=== PATIENT | female | born 1995 | race Caucasian/White ===

== ENCOUNTER 2019-02-25 20:46 | Emergency (ER) | payer BC, OTHER ==
[2019-02-25 21:37] VITALS: BP 140/69
--- NOTE | 2019-02-25 21:49 | UC ---
Skin Complaint HPI - HPI Summary HPI Summary: 23 yo female come to clinic with a c/o laceration to the left thumb which happened jpta. Pt accidentally cut herself with a razor blade. Bleeding stopped with direct pressure. No numbness/weakness. No other injury. Reports she is UTD with Td. - History of Current Complaint Chief Complaint: UCLaceration Time Seen by Provider: 02/25/19 21:39 Stated Complaint: LEFT THUMB LAC Hx Last Menstrual Period: 02/11/19 Pain Intensity: 0 - Allergy/Home Medications Allergies/Adverse Reactions: Allergies Allergy/AdvReac Type Severity Reaction Status Date / Time No Known Allergies Allergy Verified 02/25/19 21:32 Home Medications: Home Medications NK [No Home Medications Reported] 02/25/19 [History Confirmed 02/25/19] PMH/Surg Hx/FS Hx/Imm Hx Previously Healthy: Yes - Surgical History Surgical History: Yes Surgery Procedure, Year, and Place: back sx-2014. right foot-2016. left wrist- 2016,2018 - Family History Known Family History: Positive: Non-Contributory - Social History Alcohol Use: Occasionally Substance Use Type: None Smoking Status (MU): Never Smoked Tobacco Review of Systems All Other Systems Reviewed And Are Negative: Yes Constitutional: Positive: Negative Skin: Positive: Other - see hpi Eyes: Positive: Negative ENT: Positive: Negative Respiratory: Positive: Negative Cardiovascular: Positive: Negative Gastrointestinal: Positive: Negative Motor: Positive: Negative Neurovascular: Positive: Negative Musculoskeletal: Positive: Negative Neurological: Positive: Negative Psychological: Positive: Negative Is Patient Immunocompromised?: No Physical Exam Triage Information Reviewed: Yes Appearance: Well-Appearing, No Pain Distress, Well-Nourished Vital Signs: Initial Vital Signs Temp 98.3 F 02/25/19 21:32 Pulse 87 02/25/19 21:32 Resp 20 02/25/19 21:32 BP 140/69 02/25/19 21:32 Pulse Ox 99 02/25/19 21:32 Vital Signs Reviewed: Yes Eye Exam: Normal Eyes: Positive: Conjunctiva Clear Neck: Positive: Supple Respiratory: Positive: No respiratory distress Musculoskeletal: Positive: Strength Intact, ROM Intact Neurological: Positive: Alert, Muscle Tone Normal Psychological: Positive: Age Appropriate Behavior Skin: Positive: Other - 1cm diameter avulsion laceration on the dorsum of the DIP left thumb. No active bleeding. Thumb FROM with full strength. No sensation deficit. NL cap refill. Course/Dx - Course Course Of Treatment: Laceration cleaned, gel foam and dressing applied by nursing. - Diagnoses Provider Diagnosis: Laceration of left thumb Discharge - Sign-Out/Discharge Documenting (check all that apply): Patient Departure All imaging exams completed and their final reports reviewed: No Studies - Discharge Plan Condition: Stable Disposition: HOME Patient Education Materials: Laceration Without Closure (ED) Referrals: [facility] [Outside] Additional Instructions: FOLLOW UP WITH YOUR DOCTOR IF NOT COMPLETELY IMPROVED. GET REEVALUATED SOONER FOR WORSENING OF YOUR CONDITION; SIGNS OF INFECTION OR QUESTIONS OR CONCERNS. - Billing Disposition and Condition Condition: STABLE Disposition: Home
[2019-02-25] MEDS ORDERED: Gelfoam 12-7 ADSORBABL SPONGE* 1 EA SPONGE TOPICAL ONE (21:50)
== END 2019-02-25 22:10 | disposition home or self-care (01) ==
LOC: UCCORT 20:46
DX: S61.011A Laceration without foreign body of right thumb without damage to nail, initial encounter (principal); W26.8XXA Contact with other sharp object(s), not elsewhere classified, initial encounter; Y92.9 Unspecified place or not applicable
CPT/HCPCS: 99212; A9270-GY; G0463

== ENCOUNTER 2019-10-03 15:25 | Emergency (ER) | payer BC ==
[2019-10-03 16:16] VITALS: BP 126/67
--- NOTE | 2019-10-03 16:38 | UC ---
Throat Pain/Nasal Rodney HPI - HPI Summary HPI Summary: 23 yo female ill 8-9 days with sore throat has felt feverish at times fatigue see last week at [facility] [place] strep (-) given Z fl[place] and tapering prednisone coarse finished both not better no stiff neck no n/v/d no CP or sob - History of Current Complaint Chief Complaint: UCGeneralIllness Stated Complaint: ST Time Seen by Provider: 10/03/19 16:14 Hx Obtained From: Patient Hx Last Menstrual Period: 09/29/19 Onset/Duration: Gradual Onset, Lasting Days - 8 or more Severity: Moderate Pain Intensity: 7 Pain Scale Used: 0-10 Numeric Cough: None Associated Signs & Symptoms: Positive: Fever - Epiglottits Risk Factors Epiglottis Risk Factors: Negative - Allergies/Home Medications Allergies/Adverse Reactions: Allergies Allergy/AdvReac Type Severity Reaction Status Date / Time No Known Allergies Allergy Verified 10/03/19 16:06 Home Medications: Home Medications Acetaminophen [Tylenol Extra Strength] 2 tab PO ONCE 10/03/19 [History Confirmed 10/03/19] Albuterol 0.5% CONC NEB.ESTELLA* 1 puff INH ONCE 10/03/19 [History Confirmed ] Azithromycin TAB* [Zithromax TAB (Z-FLORENCE) 250 mg #6 tabs] 1 tab PO DAILY [History Confirmed 10/03/19] predniSONE TAB* [Deltasone 10 MG TAB*] 20 mg PO DAILY 10/03/19 [History Confirmed 10/03/19] PMH/Surg Hx/FS Hx/Imm Hx Previously Healthy: Yes - Surgical History Surgical History: Yes Surgery Procedure, Year, and Place: back sx-2014. right foot-2015. left wrist- 2016,2018 - Family History Known Family History: Positive: Non-Contributory - Social History Alcohol Use: Occasionally Substance Use Type: None Smoking Status (MU): Never Smoked Tobacco Review of Systems All Other Systems Reviewed And Are Negative: Yes Constitutional: Positive: Fever, Chills, Fatigue Skin: Positive: Negative Eyes: Positive: Negative ENT: Positive: Sore Throat Respiratory: Positive: Negative Cardiovascular: Positive: Negative Gastrointestinal: Positive: Negative Genitourinary: Positive: Negative Motor: Positive: Negative Neurovascular: Positive: Negative Musculoskeletal: Positive: Negative Neurological: Positive: Negative Psychological: Positive: Negative Physical Exam Triage Information Reviewed: Yes Appearance: Well-Appearing, No Pain Distress, Well-Nourished Vital Signs: Initial Vital Signs Temp 97.0 F 10/03/19 16:08 Pulse 63 10/03/19 16:08 Resp 18 10/03/19 16:08 BP 126/67 10/03/19 16:08 Pulse Ox 100 10/03/19 16:08 Eye Exam: Normal Eyes: Positive: Conjunctiva Clear ENT: Positive: Hearing grossly normal, Pharyngeal erythema, TMs normal, Tonsillar swelling, Tonsillar exudate, Uvula midline. Negative: Nasal congestion, Nasal drainage, Trismus, Muffled voice, Hoarse voice Dental Exam: Normal Neck: Positive: Supple, Nontender, Enlarged Nodes @ - ant and post cervical Respiratory: Positive: Lungs clear, Normal breath sounds, No respiratory distress, No accessory muscle use Cardiovascular: Positive: RRR, No Murmur Abdomen Description: Positive: Nontender, No Organomegaly. Negative: CVA Tenderness (R), CVA Tenderness (L), Distended, Guarding, Hepatomegaly, Splenomegaly Bowel Sounds: Positive: Present Musculoskeletal: Positive: ROM Intact, No Edema Neurological: Positive: Alert Psychological Exam: Normal Skin Exam: Normal Diagnostics - Laboratory Lab Results: strep (-) Throat Pain/Nasal Course/Dx - Differential Dx/Diagnosis Provider Diagnosis: Tonsillitis with exudate Discharge ED - Sign-Out/Discharge Documenting (check all that apply): Patient Departure All imaging exams completed and their final reports reviewed: No Studies - Discharge Plan Condition: Stable Disposition: HOME Patient Education Materials: Mononucleosis (ED), Tonsillitis (ED) Referrals: ELIZABETH DONATO [[email or web address], [employer], OTHER] - 4 Days Additional Instructions: I suspect you have mono blood work is pending a throat culture is also pending warm salt water gargles - Billing Disposition and Condition Condition: STABLE Disposition: Home
[2019-10-04 11:46] LABS: ABS Eosinophils 0.1 10^3/ul (0-0.6); ABS Lymphocytes 3.7 10^3/ul (1.0-4.8); ABS Monocytes 0.6 10^3/ul (0-0.8); ABS Neutrophils 3.3 10^3/ul (1.5-7.7); Eosinophil % 0.7 %; Hematocrit 40 % (35-47); Hemoglobin 13.9 g/dL (12.0-16.0); Mean Corpuscular HGB Conc 34 g/dL (31-36); Mean Corpuscular Hemoglobin 31 pg (27-31); Mean Corpuscular Volume 90 fL (80-97); Mean Platelet Volume 8.7 fL (7.4-10.4); Nucleated Red Blood Cells % 0.5; Platelet Count 247 10^3/uL (150-450); Red Blood Count 4.49 10^6 /uL (3.70-4.87); Red Cell Distribution Width 13 % (10-15); White Blood Count 7.8 10^3/uL (3.5-10.8)
--- NOTE | 2019-10-04 14:46 | UC ---
- Progress Note Progress Note: Lab work from October 03, 2019 comes back with a positive Monospot. CBC was normal. Patient to be called by nursing inform the patient of the results of positive Monospot and that she has mononucleosis. Course/Dx - Diagnoses Provider Diagnoses: Tonsillitis with exudate Discharge ED - Sign-Out/Discharge Documenting (check all that apply): Patient Departure All imaging exams completed and their final reports reviewed: No Studies - Discharge Plan Condition: Stable Disposition: HOME Patient Education Materials: Mononucleosis (ED), Tonsillitis (ED) Referrals: ELIZABETH DONATO [[employer], [employer], OTHER] - 4 Days Additional Instructions: I suspect you have mono blood work is pending a throat culture is also pending warm salt water gargles - Billing Disposition and Condition Condition: STABLE Disposition: Home
== END 2019-10-03 17:07 | disposition home or self-care (01) ==
LOC: UCCORT 15:25
DX: J03.90 Acute tonsillitis, unspecified (principal); R53.83 Other fatigue
CPT/HCPCS: 36415; 85025; 86308; 87070; 87651; 99211; G0463